=== PATIENT | male | born 2000 | race Caucasian/White ===

== ENCOUNTER 2023-12-10 21:16 | Emergency (ER) | payer MEDICAID ==
[~2023-12-10] VITALS: Ht 167.6 cm; Wt 75.4 kg
[2023-12-10 21:31] VITALS: BP 139/100; PULSE 92; RESP 18; TEMP 98.2; O2SAT 97
[2023-12-10] MEDS: LIDOCAINE 2% 100 MG/5 ML UJET TP ONE (22:42)
[2023-12-10 23:56] VITALS: BP 139/100; PULSE 92; RESP 18; TEMP 98.2; O2SAT 97
== END 2023-12-10 23:56 | disposition home or self-care (01) ==
LOC: MED 21:16
DX: N47.2 Paraphimosis (principal); Z79.899 Other long term (current) drug therapy
CPT/HCPCS: 54450; 99284